=== PATIENT | female | born 1955 | race Caucasian/White ===

== ENCOUNTER 2018-05-07 11:19 | Emergency (ER) | payer MEDICAID ==
[~2018-05-07] VITALS: Ht 170.2 cm; Wt 72.0 kg
[~2018-05-07 11:19] MED LIST: PANT20TA2 PO
[2018-05-07 11:57] LABS: BASOPHILS % (AUTO) 0.5 % (0-1); EOSINOPHILS # (AUTO) 0.1 X10'3 (0-0.9); HEMATOCRIT 48.3 % (35.0-45.0); HEMOGLOBIN 15.9 g/dl (12.0-16.0); LYMPHOCYTES # (AUTO) 1.6 X10'3 (1.1-4.8); MEAN CORPUSCULAR HEMOGLOBIN 28.4 PG (27.0-31.0); MEAN CORPUSCULAR HGB CONC 32.9 % (33.0-36.5); MEAN CORPUSCULAR VOLUME 86.4 FL (78-98); MEAN PLATELET VOLUME 8.5 FL (7.4-10.4); MONOCYTES # (AUTO) 0.4 X10'3 (0-0.9); MONOCYTES % (AUTO) 6.7 % (2-12); NEUTROPHILS # (AUTO) 4.4 X10'3 (1.8-7.7); NEUTROPHILS % (AUTO) 66.8 % (42-75); PLATELET COUNT 265 X10'3 (140-440); RED BLOOD COUNT 5.59 X10'6 (4.20-5.60); RED CELL DISTRIBUTION WIDTH 14.8 % (11.5-14.5); WHITE BLOOD COUNT 6.6 X10'3 (4.5-11.0)
[2018-05-07 12:07] LABS: INR 0.9 INR; PARTIAL THROMBOPLASTIN TIME 26 SECONDS (22-32); PROTHROMBIN TIME 9.6 SECONDS (9.0-12.0)
[2018-05-07 12:08] LABS: ALANINE AMINOTRANSFERASE 25 U/L (12-78); ALBUMIN 3.6 G/DL (3.4-5.0); ALKALINE PHOSPHATASE 131 IU/L (46-116); ANION GAP 8 (8-16); ASPARTATE AMINO TRANSFERASE 17 U/L (10-37); BILIRUBIN,TOTAL 0.6 MG/DL (0.1-1.0); BLOOD UREA NITROGEN 22 MG/DL (7-18); BUN/CREATININE RATIO 28.9 (6.6-38.0); CALCIUM 9.1 MG/DL (8.5-10.1); CHLORIDE 108 MMOL/L (99-107); CREATININE 0.76 MG/DL (0.40-0.90); GLUCOSE 88 MG/DL (70-104); POTASSIUM 3.6 MMOL/L (3.5-5.1); SODIUM 144 MMOL/L (135-145); TOTAL CARBON DIOXIDE 27.6 MMOL/L (24-32); TOTAL PROTEIN 7.3 G/DL (6.4-8.2); eGFR 77 ML/MIN
[2018-05-07 12:44] VITALS: BP 103/70
== END 2018-05-07 13:00 | disposition home or self-care (01) ==
LOC: ER 11:19
DX: R07.89 Other chest pain (principal); G43.909 Migraine, unspecified, not intractable, without status migrainosus; Z90.710 Acquired absence of both cervix and uterus; Z90.49 Acquired absence of other specified parts of digestive tract; Z85.43 Personal history of malignant neoplasm of ovary; Z88.0 Allergy status to penicillin; Z88.1 Allergy status to other antibiotic agents; Z88.2 Allergy status to sulfonamides
CPT/HCPCS: 36415; 71045; 80053; 84484; 85025; 85610; 85730; 93005; 99285

== ENCOUNTER 2018-05-25 18:36 | Emergency (ER) | payer MEDICAID ==
[~2018-05-25] VITALS: Ht 167.6 cm; Wt 70.7 kg
[2018-05-25 19:11] LABS: BASOPHILS % (AUTO) 0.4 % (0-1); EOSINOPHILS # (AUTO) 0.1 X10'3 (0-0.9); EOSINOPHILS % (AUTO) 1.1 % (0-6); HEMATOCRIT 44.6 % (35.0-45.0); HEMOGLOBIN 14.8 g/dl (12.0-16.0); LYMPHOCYTES # (AUTO) 2.2 X10'3 (1.1-4.8); LYMPHOCYTES % (AUTO) 25.7 % (21-51); MEAN CORPUSCULAR HEMOGLOBIN 28.5 PG (27.0-31.0); MEAN CORPUSCULAR HGB CONC 33.2 % (33.0-36.5); MEAN CORPUSCULAR VOLUME 85.7 FL (78-98); MEAN PLATELET VOLUME 8.3 FL (7.4-10.4); MONOCYTES # (AUTO) 0.6 X10'3 (0-0.9); MONOCYTES % (AUTO) 6.5 % (2-12); NEUTROPHILS # (AUTO) 5.7 X10'3 (1.8-7.7); NEUTROPHILS % (AUTO) 66.3 % (42-75); PLATELET COUNT 263 X10'3 (140-440); RED CELL DISTRIBUTION WIDTH 14.3 % (11.5-14.5); WHITE BLOOD COUNT 8.6 X10'3 (4.5-11.0)
[2018-05-25] MEDS: diphenhydrAMINE 50 mg/ml inj IV ONE ×2 (19:27→19:31)
[2018-05-25] MEDS: metoclopramide 5 mg/ml inj IV ONE ×2 (19:27→19:31)
[2018-05-25 19:30] LABS: ALANINE AMINOTRANSFERASE 25 U/L (12-78); ALBUMIN 3.6 G/DL (3.4-5.0); ALBUMIN/GLOBULIN RATIO 1.1 (1.1-1.5); ALKALINE PHOSPHATASE 119 IU/L (46-116); ANION GAP 9 (8-16); ASPARTATE AMINO TRANSFERASE 13 U/L (10-37); BILIRUBIN,TOTAL 0.4 MG/DL (0.1-1.0); BLOOD UREA NITROGEN 20 MG/DL (7-18); BUN/CREATININE RATIO 23.8 (6.6-38.0); CALCIUM 9.3 MG/DL (8.5-10.1); CHLORIDE 107 MMOL/L (99-107); CREATININE 0.84 MG/DL (0.40-0.90); GLUCOSE 101 MG/DL (70-104); INR 0.9 INR; PARTIAL THROMBOPLASTIN TIME 25 SECONDS (22-32); POTASSIUM 3.9 MMOL/L (3.5-5.1); PROTHROMBIN TIME 9.6 SECONDS (9.0-12.0); SODIUM 142 MMOL/L (135-145); TOTAL CARBON DIOXIDE 25.7 MMOL/L (24-32); eGFR 68 ML/MIN
[2018-05-25 19:33] LABS: TROPONIN I < 0.04 NG/ML (0.0-0.05)
[2018-05-25 20:25] VITALS: BP 139/95
== END 2018-05-25 20:27 | disposition home or self-care (01) ==
LOC: ER 18:37
DX: R51 Headache (principal); H53.8 Other visual disturbances; Z90.49 Acquired absence of other specified parts of digestive tract; Z90.710 Acquired absence of both cervix and uterus; Z98.890 Other specified postprocedural states; Z88.2 Allergy status to sulfonamides; Z88.1 Allergy status to other antibiotic agents; Z88.0 Allergy status to penicillin; Z79.899 Other long term (current) drug therapy
CPT/HCPCS: 36415; 70450; 71045; 80053; 82948; 84484; 85025; 85610; 85730; 93005; 96374; 96375; 99285; J1200; J2765

== ENCOUNTER 2018-06-04 17:59 | Emergency (ER) | payer MEDICAID ==
[~2018-06-04] VITALS: Ht 167.6 cm; Wt 66.0 kg
[2018-06-04 18:02] VITALS: BP 146/80
== END 2018-06-04 18:53 | disposition home or self-care (01) ==
LOC: ER 18:00
DX: L53.8 Other specified erythematous conditions (principal); R07.9 Chest pain, unspecified; G43.909 Migraine, unspecified, not intractable, without status migrainosus; Z88.0 Allergy status to penicillin; Z88.1 Allergy status to other antibiotic agents; Z88.2 Allergy status to sulfonamides; Z79.899 Other long term (current) drug therapy; Z90.49 Acquired absence of other specified parts of digestive tract; Z90.710 Acquired absence of both cervix and uterus; Z85.43 Personal history of malignant neoplasm of ovary
CPT/HCPCS: 99281

== ENCOUNTER 2023-02-19 11:47 | Outpatient (CLI) | payer MEDICARE, BC | END 2023-02-19 23:59 | disposition home or self-care (01) | LOC: VAS 11:47 | PROVIDERS: ATTEND Family Medicine Sports Medicine | DX: M79.605 Pain in left leg (principal); M79.89 Other specified soft tissue disorders | CPT/HCPCS: 93925; 93970 ==

== ENCOUNTER 2023-02-19 16:47 | Emergency (ER) | payer MEDICARE, BC ==
[~2023-02-19] VITALS: Ht 166.4 cm; Wt 76.0 kg
[2023-02-19 17:10] VITALS: TEMP 98.6
[2023-02-19 17:19] LABS: BASOPHILS # (AUTO) 0.1 X10'3 (0-0.2); BASOPHILS % (AUTO) 0.8 % (0-1); EOSINOPHILS # (AUTO) 0.1 X10'3 (0-0.9); EOSINOPHILS % (AUTO) 1.4 % (0-6); HEMOGLOBIN 15.1 g/dl (12.0-16.0); LYMPHOCYTES # (AUTO) 2.1 X10'3 (1.1-4.8); LYMPHOCYTES % (AUTO) 26.5 % (21-51); MEAN CORPUSCULAR HEMOGLOBIN 28.8 PG (27.0-31.0); MEAN CORPUSCULAR HGB CONC 33.6 g/dL (33.0-36.5); MEAN CORPUSCULAR VOLUME 85.8 FL (78-98); MEAN PLATELET VOLUME 8.4 FL (7.4-10.4); MONOCYTES # (AUTO) 0.8 X10'3 (0-0.9); MONOCYTES % (AUTO) 10.1 % (2-12); NEUTROPHILS % (AUTO) 61.2 % (42-75); PLATELET COUNT 272 X10'3 (140-440); RED BLOOD COUNT 5.24 X10'6 (4.20-5.60); RED CELL DISTRIBUTION WIDTH 14.6 % (11.5-14.5); WHITE BLOOD COUNT 8.1 X10'3 (4.5-11.0)
[2023-02-19 17:33] LABS: ALANINE AMINOTRANSFERASE 22 U/L (12-78); ALBUMIN 3.6 G/DL (3.4-5.0); ALBUMIN/GLOBULIN RATIO 1.1 (1.1-1.5); ALKALINE PHOSPHATASE 124 IU/L (46-116); ANION GAP 9 (8-16); ASPARTATE AMINO TRANSFERASE 17 U/L (10-37); BILIRUBIN,TOTAL 0.5 MG/DL (0.1-1.0); BLOOD UREA NITROGEN 18 MG/DL (7-18); BUN/CREATININE RATIO 20.5 (10.0-20.0); CALCIUM 9.6 MG/DL (8.5-10.1); CHLORIDE 109 MMOL/L (99-107); CREATININE 0.88 MG/DL (0.40-0.90); GLUCOSE 90 MG/DL (70-104); POTASSIUM 3.7 MMOL/L (3.5-5.1); SODIUM 144 MMOL/L (135-145); TOTAL CARBON DIOXIDE 25.9 MMOL/L (24-32); TOTAL PROTEIN 6.9 G/DL (6.4-8.2); eGFR 64 ML/MIN
[2023-02-19 22:17] VITALS: BP 152/90; PULSE 76; RESP 18; O2SAT 97
== END 2023-02-19 23:12 | disposition home or self-care (01) ==
LOC: ER 16:48
DX: R00.2 Palpitations (principal); G43.909 Migraine, unspecified, not intractable, without status migrainosus; E78.00 Pure hypercholesterolemia, unspecified; Z88.2 Allergy status to sulfonamides; Z79.899 Other long term (current) drug therapy; Z79.1 Long term (current) use of non-steroidal anti-inflammatories (NSAID)
CPT/HCPCS: 36415; 71045; 80053; 83880; 84484; 85025; 93005; 99285

== ENCOUNTER 2023-06-18 19:14 | Emergency (ER) | payer MEDICARE, BC ==
[~2023-06-18] VITALS: Ht 165.1 cm; Wt 74.8 kg
[2023-06-18] MEDS ORDERED: ketorolac trometh inj. 60 MG/2 ML VIAL IM ONE (19:40)
--- NOTE | 2023-06-18 21:09 | NUR ---
RECIEVED VERBAL ORDER FOR CBC AND CMP FROM DR BARNES.
[2023-06-18 22:08] LABS: BASOPHILS # (AUTO) 0.1 X10'3 (0-0.2); BASOPHILS % (AUTO) 0.5 % (0-1); EOSINOPHILS # (AUTO) 0.1 X10'3 (0-0.9); EOSINOPHILS % (AUTO) 1.2 % (0-6); HEMATOCRIT 48.4 % (35.0-45.0); HEMOGLOBIN 16.3 g/dl (12.0-16.0); LYMPHOCYTES # (AUTO) 2.3 X10'3 (1.1-4.8); LYMPHOCYTES % (AUTO) 21.3 % (21-51); MEAN CORPUSCULAR HEMOGLOBIN 28.8 PG (27.0-31.0); MEAN CORPUSCULAR HGB CONC 33.7 g/dL (33.0-36.5); MEAN CORPUSCULAR VOLUME 85.6 FL (78-98); MEAN PLATELET VOLUME 8.1 FL (7.4-10.4); MONOCYTES # (AUTO) 0.8 X10'3 (0-0.9); MONOCYTES % (AUTO) 7.4 % (2-12); NEUTROPHILS # (AUTO) 7.5 X10'3 (1.8-7.7); NEUTROPHILS % (AUTO) 69.6 % (42-75); PLATELET COUNT 309 X10'3 (140-440); RED BLOOD COUNT 5.65 X10'6 (4.20-5.60); RED CELL DISTRIBUTION WIDTH 14.3 % (11.5-14.5); WHITE BLOOD COUNT 10.7 X10'3 (4.5-11.0)
[2023-06-18 22:21] LABS: ALANINE AMINOTRANSFERASE 28 U/L (12-78); ALBUMIN 3.9 G/DL (3.4-5.0); ALKALINE PHOSPHATASE 144 IU/L (46-116); ANION GAP 14 (8-16); ASPARTATE AMINO TRANSFERASE 20 U/L (10-37); BILIRUBIN,TOTAL 0.8 MG/DL (0.1-1.0); BLOOD UREA NITROGEN 19 MG/DL (7-18); BUN/CREATININE RATIO 20.7 (10.0-20.0); CALCIUM 9.5 MG/DL (8.5-10.1); CHLORIDE 103 MMOL/L (99-107); CREATININE 0.92 MG/DL (0.40-0.90); GLUCOSE 97 MG/DL (70-104); POTASSIUM 3.2 MMOL/L (3.5-5.1); SODIUM 137 MMOL/L (135-145); TOTAL PROTEIN 7.7 G/DL (6.4-8.2); eCRCL 52 ML/MIN; eGFR 61 ML/MIN
[2023-06-19] MEDS ORDERED: traMADol 50MG tablet PO ONE (01:45)
[2023-06-19] MEDS ORDERED: dicyclomine 10 MG capsule PO ONE (01:45)
[2023-06-19 02:19] LABS: BILIRUBIN,URINE NEGATIVE (Neg); CLARITY,URINE SLIGHTLY CLOUDY (Clear); COLOR,URINE YELLOW (Yellow); GLUCOSE, URINE NEGATIVE (Neg); KETONES,URINE 15 mg/dl (Neg); LEUKOCYTE ESTERASE ,URINE MODERATE (Neg); NITRITES, URINE NEGATIVE (Neg); OCCULT BLOOD,URINE NEGATIVE (Neg); PH,URINE 6.5 (4.8-8.0); PROTEIN,URINE NEGATIVE (Neg); UROBILINOGEN,URINE 0.2 E.U/dL (0.2-1.0)
[2023-06-19 02:20] LABS: UA COLLECTION TYPE CLN CATCH MIDSTREAM
[2023-06-19 02:28] LABS: BACTERIA,URINE 4+ /HPF (Neg); MUCUS STRANDS FEW /LPF (Neg); RBC,URINE 0-2 /HPF (0-2); SQUAMOUS EPITHELIAL CELL,UR FEW /LPF (FEW); TRANSITIONAL EPI CELLS,URINE FEW /HPF
[2023-06-19] MEDS ORDERED: DICY10CA88 PO (02:48)
[2023-06-19] MEDS ORDERED: TRAM50TA2 PO (02:48)
[2023-06-19] MEDS ORDERED: DOCU-171 PO (02:48)
[2023-06-19 03:00] VITALS: BP 123/80; PULSE 77; RESP 17; TEMP 98.9; O2SAT 98
== END 2023-06-19 03:01 | disposition home or self-care (01) ==
LOC: ER 19:14
DX: R10.9 Unspecified abdominal pain (principal); G43.909 Migraine, unspecified, not intractable, without status migrainosus; E78.00 Pure hypercholesterolemia, unspecified; Z90.49 Acquired absence of other specified parts of digestive tract; Z88.2 Allergy status to sulfonamides; Z88.1 Allergy status to other antibiotic agents; Z88.0 Allergy status to penicillin; Z79.899 Other long term (current) drug therapy
CPT/HCPCS: 36415; 71250; 74176; 80053; 81001; 85025; 87077; 87088; 87186; 96372; 99285; J1885

== ENCOUNTER 2024-12-22 20:20 | Emergency (ER) | payer MEDICARE, BC ==
[~2024-12-22] VITALS: Ht 165.1 cm; Wt 70.5 kg
[~2024-12-22 20:20] MED LIST changes: +CA C1TAB95; +CHOL100046 PO; +IBUP-1594 PO; +LEVO75TA7 PO; -PANT20TA2 PO
--- NOTE | 2024-12-22 20:47 | Physician Documentation ---
History of Present Illness ~ Chief Complaint: Vomiting Stated Complaint: NAUSEA Time Seen by MD: 20:40 Primary Medical Doctor: Jade Saeed Mode of Arrival: EMS, Ambulatory HPI This is a 69-year-old female who presents to the emergency department per EMS today due to concerns for a vomiting. She also notes that she has recurrent issues with migraine headaches, and has developed a migraine headache but was unable to take her usual medications due to the persistence of her nausea and vomiting. Symptoms have been present for the last several hours. She also notes that she is experiencing right hip spasms and has "[id number]" right hip arthritis. Medication Reconciliation Allergies: Coded Allergies: Sulfa (Sulfonamide Antibiotics) (Verified Allergy, Severe, 12/22/24) ciprofloxacin (Verified Allergy, Intermediate, RASH, 12/22/24) Penicillins (Verified Allergy, Mild, RASH, 12/22/24) Scheduled Cholecalciferol (Vitamin D3) (Vitamin D3), 1 CAP PO DAILY, (Reported) Ibuprofen (Motrin Ib), 600 MG PO TID@0830,1230,1730 Levothyroxine Sodium (Levothyroxine Sodium), 1 TAB PO DAILY, (Reported) Tizanidine Hcl (Zanaflex), 1 TAB PO HS Scheduled PRN ONDANSETRON ODT 4mg tablet (Ondansetron Odt), 1 TAB PO Q6H PRN PRN for nausea/vomiting Rimegepant Sulfate (Nurtec Odt), 1 TAB PO QDAY PRN PRN for migraine Miscellaneous Medications Ca Carbonate/Vitamin D3/Vit K (Citracal Soft Chew), (Reported) Past Medical History Past Medical History: Headache, Migraine, High Cholesterol, *MUSCULOSKELETAL*, *CANCER*, Ovarian Cancer Past Surgical History: cancer surgery, cholecystectomy, hysterectomy Other Past Surgical History: 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 Physical Exam Vital Signs: Temperature: 98.0, Source: Oral, Heart Rate: 89, Respiratory Rate: 18, BP: 145/91, Pulse Oximetry: 99, Weight: 70.450 Progress Results/Orders Results/Orders Orders - WYATT,JULIANNA L [employer]ELESALES SPECIALIST * Iv Access / Saline Lock * (12/22/24 20:40) Prochlorperazine Inj (Compazine Inj) (12/22/24 20:40) Completed Orders - JULIANNA SCHNEIDER [employer]ES[employer] SPECIALIST Normal Saline 1000ml (Sodium Chloride 10 (12/22/24 20:40) Diphenhydramine Inj (Benadryl Inj.) (12/22/24 20:40) CMP (12/22/24 20:45) Cbc/Diff (12/22/24 20:45) Lipase (12/22/24 20:45) Diazepam Inj (Valium Inj) (12/22/24 20:45) Ketorolac Trometh 15mg/Ml Vial (Toradol (12/22/24 22:25) Dexamethasone Inj (Decadron 4mg/Ml Inj) (12/22/24 22:25) Dexamethasone Inj (Decadron 4mg/Ml Inj) (12/22/24 22:25) Medications Received in ER Medications (Trade) Dose Ordered Sig/Herminio Route PRN Reason Start Time Stop Time Status Last Admin Dose Admin Sodium Chloride 1,000 ml @ 1,000 mls/hr ONCE ONCE IV 12/22/24 20:40 12/22/24 21:39 DC 12/22/24 21:04 1,000 MLS/HR (Compazine inj) 10 mg ONCE ONCE IV 12/22/24 20:40 12/22/24 20:41 DC 12/22/24 21:03 10 MG (Benadryl inj.) 12.5 mg ONCE ONCE IV 12/22/24 20:40 12/22/24 20:41 DC 12/22/24 21:03 12.5 MG (Valium inj) 2.5 mg ONCE ONCE IV 12/22/24 20:45 12/22/24 20:47 DC 12/22/24 21:04 2.5 MG (Toradol injection) 15 mg ONCE ONCE IV 12/22/24 22:25 12/22/24 22:29 DC 12/22/24 23:04 15 MG (Decadron 4mg/ml inj) 4 mg ONCE ONCE IV 12/22/24 22:25 12/22/24 22:29 DC 12/22/24 23:04 4 MG Vital Signs 12/22/24 12/22/24 20:27 20:38 Temp 98.0 Pulse 89 Resp 18 18 B/P (MAP) 145/91 Pulse Ox 99 Laboratory Tests Test 12/22/24 20:59 White Blood Count 9.4 Red Blood Count 5.46 Hemoglobin 15.6 Hematocrit 45.4 H Mean Corpuscular Volume 83.2 Mean Corpuscular Hemoglobin 28.5 Mean Corpuscular Hemoglobin Concent 34.3 Red Cell Distribution Width 14.1 Platelet Count 273 Mean Platelet Volume 8.2 Neutrophils (%) (Auto) 81.0 H Lymphocytes (%) (Auto) 11.9 L Monocytes (%) (Auto) 5.9 Eosinophils (%) (Auto) 0.1 Basophils (%) (Auto) 1.1 H Neutrophils # (Auto) 7.6 Lymphocytes # (Auto) 1.1 Monocytes # (Auto) 0.6 Eosinophils # (Auto) 0.0 Basophils # (Auto) 0.1 CBC Comment Sodium Level 140 Potassium Level 3.5 Chloride Level 104 Carbon Dioxide Level 20.4 L Anion Gap 16 Blood Urea Nitrogen 23 H Creatinine 0.83 Estimated GFR/1.73 m2 68 BUN/Creatinine Ratio 27.7 H Glucose Level 109 H Calcium Level 9.4 Total Bilirubin 0.8 Aspartate Amino Transf (AST/SGOT) 30 Alanine Aminotransferase (ALT/SGPT) 23 Alkaline Phosphatase 143 H Total Protein 7.5 Albumin 4.0 Globulin 3.5 Albumin/Globulin Ratio 1.1 Lipase 28 Chemistry Comments Medical Decision Making Additional Comments This 69-year-old female presented to the emergency department today per ambulance for issues with migraine and light sensitivity, nausea, vomiting. She was also reporting worsening of her chronic right hip pain with report of [id number] arthritis to this area. In the emergency department she was medicated for nausea, pain, spasm, and given 1 L of normal saline IV. She was then considered appropriate for discharge home. She is to follow up with her primary care provider. No emergent condition was identified, labs were overall WNL, VSS. No need for imaging as this was reportedly her usual migraine and she had no neurologic changes. No fevers. Suspect viral illness with exacerbation of her chronic issues with her migraines and right hip pain. Departure Time of Disposition: 22:06 Impression: Primary Impression: Viral gastroenteritis Additional Impression: Migraine Condition: Stable Discharge Instructions: Migraine Headache, Nausea and Vomiting, Adult Additional Instructions: You likely have a viral illness which then rendered you unable to treat yourself as you usually do for your migraine headache. Labs reassuring. You were given IV hydration and medication for nausea and spasm. Prescriptions to your pharmacy: ondansetron as needed for nausea tizanidine as needed for right hip spasm, take at bedtime as needed Nurtec to try for your migraine headaches. Followup with primary care next week. Return if worse. Referrals: NO PRIMARY CARE PROVIDER (PCP) Prescriptions Tizanidine Hcl (Zanaflex) 2 Mg Tablet 1 TAB PO HS for muscle spasm for 10 Days, #10 TAB 0 Refills Prov: JULIANNA SCHNEIDER NP 12/22/24 Rimegepant Sulfate (Nurtec Odt) 75 Mg Tab.rapdis 1 TAB PO QDAY PRN PRN for migraine for 30 Days, #8 TAB 0 Refills Prov: JULIANNA SCHNEIDER NP 12/22/24 ONDANSETRON ODT 4mg tablet (ONDANSETRON ODT) 4 Mg Tab.rapdis 1 TAB PO Q6H PRN PRN for nausea/vomiting for 4 Days, #16 TAB 0 Refills Prov: JULIANNA SCHNEIDER NP 12/22/24 Education Educated: Patient, Family Educated regarding: diagnosis, treatment, prognosis, need for follow up Signature Scribe Signature: no scribe Attestation: The note accurately reflects work and decisions made by me.Julianna English NP 12/22/24 22:47 JULIANNA SCHNEIDER NP Dec 22, 2024 20:47
[2024-12-22] MEDS: proCHLORperazine 10 MG/2 ml inj IV ONE (21:03)
[2024-12-22] MEDS: diphenhydrAMINE 50 mg/ml inj IV ONE (21:03)
[2024-12-22] MEDS: normal saline 1000ml 1,000 ML IV ONE (21:04)
[2024-12-22] MEDS: diazepam inj 5 MG/ML inj. IV ONE (21:04)
[2024-12-22 21:09] LABS: BASOPHILS # (AUTO) 0.1 X10'3 (0-0.2); BASOPHILS % (AUTO) 1.1 % (0-1); EOSINOPHILS % (AUTO) 0.1 % (0-6); HEMATOCRIT 45.4 % (35.0-45.0); HEMOGLOBIN 15.6 g/dl (12.0-16.0); LYMPHOCYTES # (AUTO) 1.1 X10'3 (1.1-4.8); LYMPHOCYTES % (AUTO) 11.9 % (21-51); MEAN CORPUSCULAR HEMOGLOBIN 28.5 PG (27.0-31.0); MEAN CORPUSCULAR HGB CONC 34.3 g/dL (33.0-36.5); MEAN CORPUSCULAR VOLUME 83.2 FL (78-98); MEAN PLATELET VOLUME 8.2 FL (7.4-10.4); MONOCYTES # (AUTO) 0.6 X10'3 (0-0.9); MONOCYTES % (AUTO) 5.9 % (2-12); NEUTROPHILS # (AUTO) 7.6 X10'3 (1.8-7.7); PLATELET COUNT 273 X10'3 (140-440); RED BLOOD COUNT 5.46 X10'6 (4.20-5.60); RED CELL DISTRIBUTION WIDTH 14.1 % (11.5-14.5); WHITE BLOOD COUNT 9.4 X10'3 (4.5-11.0)
[2024-12-22 21:24] LABS: ALANINE AMINOTRANSFERASE 23 U/L (12-78); ALBUMIN/GLOBULIN RATIO 1.1 (1.1-1.5); ALKALINE PHOSPHATASE 143 IU/L (46-116); ASPARTATE AMINO TRANSFERASE 30 U/L (10-37); BILIRUBIN,TOTAL 0.8 MG/DL (0.1-1.0); BLOOD UREA NITROGEN 23 MG/DL (7-18); BUN/CREATININE RATIO 27.7 (10.0-20.0); CALCIUM 9.4 MG/DL (8.5-10.1); CHLORIDE 104 MMOL/L (99-107); CREATININE 0.83 MG/DL (0.40-0.90); GLUCOSE 109 MG/DL (70-104); LIPASE 28 U/L (16-77); TOTAL CARBON DIOXIDE 20.4 MMOL/L (24-32); TOTAL PROTEIN 7.5 G/DL (6.4-8.2); eCRCL 56 ML/MIN; eGFR 68 ML/MIN
[2024-12-22 21:25] LABS: ANION GAP 16 (8-16); POTASSIUM 3.5 MMOL/L (3.5-5.1); SODIUM 140 MMOL/L (135-145)
[2024-12-22] MEDS ORDERED: RIME75TA PO (22:08)
[2024-12-22] MEDS ORDERED: ONDA-243 PO (22:08)
[2024-12-22] MEDS ORDERED: TIZA-189 PO (22:09)
[2024-12-22] MEDS ORDERED: dexamethasone 4mg/ml inj IV SCH (22:25)
[2024-12-22] MEDS: ketorolac trometh 15mg/ml vial 15 MG/ML ML IV ONE (23:04)
[2024-12-22] MEDS: dexamethasone 4mg/ml inj IV ONE (23:04)
[2024-12-23 00:03] VITALS: BP 146/80; PULSE 80; RESP 18; TEMP 98.1; O2SAT 99
== END 2024-12-23 00:08 | disposition home or self-care (01) ==
LOC: ER 20:20
DX: A08.4 Viral intestinal infection, unspecified (principal); G43.909 Migraine, unspecified, not intractable, without status migrainosus; E78.00 Pure hypercholesterolemia, unspecified; M16.11 Unilateral primary osteoarthritis, right hip; Z85.43 Personal history of malignant neoplasm of ovary; Z88.0 Allergy status to penicillin; Z88.1 Allergy status to other antibiotic agents; Z88.2 Allergy status to sulfonamides; Z90.49 Acquired absence of other specified parts of digestive tract; Z90.710 Acquired absence of both cervix and uterus
CPT/HCPCS: 36415; 80053; 83690; 85025; 96361; 96374; 96375; 99284; J0780; J1100; J1200; J1885; J3360; J7030